=== PATIENT | male | born 1950 | race Caucasian/White ===

== ENCOUNTER 2024-06-10 07:12 | Emergency (ER) | payer OTHER, SELFPAY ==
[2024-06-10 07:21] VITALS: BP 187/93
[2024-06-10 07:56] VITALS: BMI 31.5
[2024-06-10 08:00] VITALS: BP 159/79
--- NOTE | 2024-06-10 08:04 | ED.GENMED ---
History of Present Illness
General
Chief Complaint: Chest Pain
Source: patient and spouse
Exam Limitations: none
Time Seen by Provider: 06/10/24 07:55
Nursing documentation reviewed up to this point in time: agreed with
History of Present Illness
History of Present Illness:
73-year-old male with history of HTN, HLD, GERD, congenital solitary left kidney, stent LAD 05/2020 presents stating for the last 3 days he has had intermittent left chest 'heaviness' lasting no more than 5 seconds at a time. No associated symptoms
such as dizziness, nausea, sweating or shortness of breath. No relieving or aggravating factors. He states he also feels 'something' in his left arm occasionally, not associated with the chest pain.
He is fairly active walking 3 days a week and treadmill 1 or 2 days a week. Currently asymptomatic.
Past History
Past History
ED Past Medical History: GERD, HTN and Hypercholesterolemia
ED Past Surgical History[facility]
Social History
Tobacco: Former smoker
Alcohol: Occasional
Personal:
Living: with family
Employment: Retired
Review of Systems
Review of Systems
Allergies reviewed?: Yes
All Other Systems: ROS reviewed and negative except as documented in HPI and ROS
Constitutional: Denies fatigue
Respiratory: Denies trouble breathing
Cardiac: Reports chest pain; Denies diaphoresis, palpitations or syncope
ABD/GI: Denies abdominal pain, nausea, vomiting or diarrhea
: Denies dysuria or difficulty voiding
Musculoskeletal: Reports no symptoms
Skin: Reports no symptoms
Neurological: Reports no symptoms
Phy Exam
Physical Exam
Physical Exam:
GENERAL: No acute distress. A&Ox3.
CONSTITUTIONAL: Afebrile.
EYES: Clear, conjunctivae normal
ENMT: moist mucus membranes, Pharynx nl
RESPIRATORY: Regular respirations, nonlabored, lungs clear.
CARDIOVASCULAR: Regular rate and rhythm, occasional earlyl beat, no murmurs, no rubs.
GI: Soft, nontender, normal BS
MUSCULOSKELETAL: Moves with ease. Well perfused. No edema
SKIN: Warm, dry, pink
PSYCH: Normal mood and affect. Well kept, interactive and appropriate
NEUROLOGIC: Awake, alert and oriented. No focal neurological deficits
Scores
Heart Score for Chest Pain Patients
STEMI patient?: Not applicable
Course
Orders/Labs/Results
Orders:
Orders
06/10/24 07:24
ECG [Electrocardiogram (*1)] Urgent
Reason for Study: Chest Pain
06/10/24 07:25
EKG- Treatment ONCE
06/10/24 08:03
CR Chest - 2 Views Urgent
Comment:
Reason For Exam: chest pain
06/10/24 08:32
Complete Blood Count/With Diff Urgent
Comprehensive Metabolic Panel Urgent
Troponin I Urgent
06/10/24 09:21
EKG- Treatment ONCE
Abnormal Lab Results
06/10/24
08:32
MCH 31.4 H pg
(27.0-31.0)
BUN 23 H mg/dl
(9-20)
Glucose 117 H mg/dl
(70-99)
06/10/24 08:32
06/10/24 08:32
Vital Signs
Initial and Last Documented VS:
Initial Vital Signs
Temp Pulse Resp BP Pulse Ox
98 F 75 18 187/93 96
06/10/24 07:21 06/10/24 07:21 06/10/24 07:21 06/10/24 07:21 06/10/24 07:21
Last Documented Vital Signs
Temp Pulse Resp BP Pulse Ox
98 F 80 18 142/79 95
06/10/24 07:21 06/10/24 09:45 06/10/24 09:45 06/10/24 09:44 06/10/24 09:44
MDM/Problems Addressed
Differential Diagnosis Includes:
ACS, angina, atypical CP
MDM/Problems Addressed:
73-year-old male with history of HTN, HLD, GERD, congenital solitary left kidney, stent LAD 05/2020 presents stating for the last 3 days he has had intermittent left chest 'heaviness' lasting no more than 5 seconds at a time. No associated symptoms
such as dizziness, nausea, sweating or shortness of breath. No relieving or aggravating factors. He states he also feels 'something' in his left arm occasionally, not associated with the chest pain.
He is fairly active walking 3 days a week and treadmill 1 or 2 days a week. Currently asymptomatic.
EKG: sinus rhytm with PACs
9:30 a.m.
CBC normal
CMP: BUN 23 otherwise normal
Troponin WNL
Chest x-ray radiology report read:IMPRESSION:
Mildly increased right hemidiaphragm with minimally increased bibasilar opacities, likely representing scarring versus atelectasis. No pleural effusions.
Nothing in workup to indicate cardiac etiology of symptoms
In further discussion, pt recently started using arm eliptical machine so may be musculoskeletal
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
Copy of xray, EKG and labs provided
Chronic conditions affecting care: HTN and CAD
*Critical Care Note
Total Time (30-74mins, 75-104mins- exclusive of procedures): Not Applicable
ED Attending Note
-
Portions of this chart may have been created with voice recognition software.� Occasional wrong word or��sound alike� substitutions may have occurred due to the inherent limitations of voice recognition software.
Discharge Plan
Departure
Patient Disposition: Home (Routine Discharge)
Date of Disposition: 06/10/24
Time of Disposition: 09:39
Patient with high blood pressure during this ER visit?: No
Condition: Good
Discharge Problem:
Atypical chest pain
Instructions: Chest Pain NON-[facility] Follow Up
Prescriptions:
No Action
lisinopril 10 MG tablet
10 mg PO DAILY
multivitamin with folic acid [Tab-A-Colleen] 1 TABLET tablet
1 tab PO DAILY
atorvastatin 80 MG tablet
80 mg PO QPM Qty: 30 3RF
clopidogrel 75 MG tablet
75 mg PO DAILY Qty: 30 3RF
pantoprazole 40 MG tablet,delayed release (DR/EC)
40 mg PO DAILY Qty: 30 3RF
aspirin 81 MG tablet,chewable
81 mg PO DAILY 0RF
metoprolol succinate 25 MG tablet extended release 24 hr
25 mg PO DAILY Qty: 30 3RF
nitroglycerin 0.4 MG tablet, sublingual
0.4 mg sublingual [id number] (Reason: chest pain) Qty: 25 5RF
Referrals:
[facility] [Other] - Call in 1-3 days for appt
Edyta Lemons DO [Family Provider] -
Activity Restrictions/Additional Instructions:
As we discussed, call your storage garage manager office today and inform of today's visit. Make appointment for sometime in the next 1-2 weeks for a more thorough cardiac evaluation.
Take copies of your results with you
Seek medical care immediately for worsening chest pain, shortness of breath, sweating, nausea, or feeling worse in any way.
Your symptoms may be from recently using the arm eliptical machine
Interventions
Interventions:
*Risk Screen - Suicide Last Done: 06/10/24 07:21
*General Assessment Last Done: 06/10/24 07:21
*Neglect/Abuse Screening Last Done: 06/10/24 07:21
ED- Fall Risk Assessment Last Done: 06/10/24 09:50
*ED COVID-19 Vaccine History Last Done: 06/10/24 09:50
*Nursing Disposition Last Done: 06/10/24 09:50
ED- Cardiac Assessment Last Done: 06/10/24 07:59
Discharge Date and Time
Print Language: SYRIAC
[2024-06-10 09:01] LABS: % Basophils 0.5 % (0-2); % Eosinophils 0.7 % (0-6); % Immature Granulocytes 0.3 % (0-0.5); % Lymphocytes 28.2 % (20.5-51.1); % Monocytes 5.4 % (1.7-9.3); % Neutrophils 64.9 % (42.2-75.2); Absolute Lymphocytes 1.6 10^3/uL (1.2-3.4); Absolute Monocytes 0.3 10^3/uL (0.1-0.6); Absolute Neutrophils 3.8 10^3/uL (1.4-6.5); Hematocrit 46.3 % (39.0-52.0); Hemoglobin 16.2 g/dL (13.0-18.0); Mean Corpuscular Hgb 31.4 pg (27.0-31.0); Mean Corpuscular Volume 89.7 fL (80.0-94.0); Nucleated Red Blood Cells % 0 % (-); Platelet Count 172 10^3/uL (130-400); Red Blood Cell Count 5.16 10^6/uL (4.70-6.10); White Blood Cell Count 5.8 10^3/uL (4.8-10.8)
[2024-06-10 09:09] LABS: ALT (SGPT) 31 U/L (0-50); AST (SGOT) 24 U/L (17-59); Albumin 4.4 g/dl (3.5-5.0); Alkaline Phosphatase 103 U/L (38-126); Blood Urea Nitrogen 23 mg/dl (9-20); Calcium 9.8 mg/dl (8.4-10.2); Carbon Dioxide 27 mmol/L (22-30); Chloride 106 mmol/L (98-107); Estimated Creatinine Clearance 92 ml/min; Glucose 117 mg/dl (70-99); Potassium 4.2 mmol/L (3.5-5.1); Sodium 140 mmol/L (135-145); Total Bilirubin 1.2 mg/dl (0.2-1.3); Total Protein 6.9 g/dl (6.3-8.2); eGFR > 60.00
[2024-06-10 09:20] LABS: Troponin I < 0.012 ng/ml
[2024-06-10 09:40] VITALS: BP 127/79
[2024-06-10 09:44] VITALS: BP 142/79
== END 2024-06-10 09:50 | disposition home or self-care (01) ==
LOC: EMR 07:12
PROVIDERS: EMERGENCY PHYSICIAN Emergency Medicine; FAMILY PHYSICIAN Family Medicine
DX: R07.89 Other chest pain (principal); I10 Essential (primary) hypertension; E78.00 Pure hypercholesterolemia, unspecified; K21.9 Gastro-esophageal reflux disease without esophagitis; I25.10 Atherosclerotic heart disease of native coronary artery without angina pectoris; Q60.0 Renal agenesis, unilateral; Z95.5 Presence of coronary angioplasty implant and graft; Z87.891 Personal history of nicotine dependence; Z79.82 Long term (current) use of aspirin
CPT/HCPCS: 99284; 71046; 80053; 84484; 85025; 93005